=== PATIENT | female | born 1985 | race Caucasian/White ===

== ENCOUNTER 2016-04-11 21:18 | Emergency (ER) | payer OTHER ==
[2016-04-11 21:24] VITALS: BP 133/78; PULSE 90; TEMP 98; BMI 18.8
--- NOTE | 2016-04-11 21:24 | PDOC ---
History of Present Illness - General History Source: Patient Exam Limitations: No Limitations - History of Present Illness Initial Comments: 04/11/16 21:36 The patient is a 30 year old female, with no significant past medical history, who presents to the emergency department with a laceration to the right posterior ankle just prior to presentation to the ED. The patient states that she was moving furniture earlier this evening when a piece of furniture fell onto her right ankle. The patient was ambulatory after the incident and drove herself to the ED for evaluation. She denies any numbness/weakness of the right lower extremity. Last Tetanus is unknown. PAST MEDICAL HISTORY: See HPI. PAST SURGICAL HISTORY: No significant history. FAMILY HISTORY: No pertinent history. SOCIAL HISTORY: Patient lives with family and is employed. MEDICATIONS: Reviewed. ALLERGIES: As per nursing notes. Adult ROS: General: No fevers or chills, no weakness, no weight loss. HEENT: No change in vision. No sore throat. No ear pain. CardioVascular: No chest pain or shortness of breath. Respiratory: No cough, or wheezing. Gastrointestinal: No nausea, vomiting, diarrhea or constipation, no rectal bleeding. Genitourinary: No dysuria, hematuria, or frequency. Musculoskeletal: No joint or muscle pain or swelling. Neurologic: No headache, vertigo, dizziness or loss of consciousness. Psychiatric: No depression. Skin: +Laceration to the right posterior ankle. No rashes or easy bruising. Endocrine: No increased thirst or abnormal weight change. Allergic: No skin or latex allergy. All other systems reviewed and normal. Basic Exam: GENERAL: The patient is awake, alert, and fully oriented, in no acute distress. HEAD: Normal with no signs of trauma. EYES: Pupils equal, round and reactive to light, extraocular movements intact, sclera anicteric, conjunctiva clear. EXTREMITIES: Normal range of motion, no edema. NEUROLOGICAL: Normal speech, normal gait. PSYCH: Normal mood, normal affect. SKIN: 3.5 cm laceration to the right posterior ankle. Achilles tendon intact. Full ROM of the right ankle. Neurovascularly intact. Warm, dry, normal turgor, no rashes or lesions noted. <Trini Baker - Last Filed: 04/11/16 21:36> - General History Source: Patient Exam Limitations: No Limitations - History of Present Illness Initial Comments: 04/11/16 21:44 A portion of this note was documented by scribe services under my direction. I have reviewed the details of the note, within reason, and agree with the documentation. The case summary and management plan written by me. Assessment and plan: This is a 30-year-old female with laceration to her posterior heel area. Patient sustained a laceration while moving some furniture. Patient's tetanus needed to be updated she was given a tetanus here in the emergency room the laceration was cleaned and closed. Patient discharged will follow-up with her primary care doctor or return to the emergency room in 6-8 days for suture removal <Janine Cohn I - Last Filed: 04/11/16 21:47> - General Chief Complaint: Injury Stated Complaint: LACERATION RIGHT FOOT Time Seen by Provider: 04/11/16 21:24 Past History <Trini Baker - Last Filed: 04/11/16 21:36> - Past Medical History Other medical history: DENIES - Immunization History Td Vaccination: No Immunization Up to Date: No - Psycho/Social/Smoking Cessation Hx Anxiety: No Suicidal Ideation: No Smoking History: Never smoked Have you smoked in the past 12 months: No Information on smoking cessation initiated: No Hx Alcohol Use: Yes (SOCIAL) Drug/Substance Use Hx: No Substance Use Type: None <Janine Cohn I - Last Filed: 04/11/16 21:47> - Past Medical History Allergies/Adverse Reactions: Allergies Allergy/AdvReac Type Severity Reaction Status Date / Time No Known Allergies Allergy Verified 04/11/16 21:19 Home Medications: Ambulatory Orders NK [No Known Home Medication] 04/11/16 *Physical Exam - Vital Signs Last Vital Signs Temp Pulse Resp BP Pulse Ox 98 F 90 16 133/78 98 04/11/16 21:19 04/11/16 21:19 04/11/16 21:19 04/11/16 21:19 04/11/16 21:19 <Trini Baker - Last Filed: 04/11/16 21:36> - Vital Signs Last Vital Signs Temp Pulse Resp BP Pulse Ox 98 F 90 16 133/78 98 04/11/16 21:19 04/11/16 21:19 04/11/16 21:19 04/11/16 21:19 04/11/16 21:19 <Janine Cohn I - Last Filed: 04/11/16 21:47> Procedures - Laceration/Wound Repair Right Posterior Ankle Wound Length: 2.6 to 5.0 cm (3.5 cm) Wound Explored: clean, no foreign body present (no achilles tendon injury) Wound's Depth, Shape: superficial, linear Irrigated w/ Saline: Yes Betadine Prep: No Anesthesia: 1% Lidocaine Amount of Anesthetic (ccs): 3 Wound Debrided: minimal Wound Repaired With: Sutures Suture Size/Type: 5:0, other (ethylon) Number of Sutures: 5 (simple interrupted) Layer Closure: No (single layer) Sterile Dressing Applied: Yes <Trini Baker - Last Filed: 04/11/16 21:36> ED Treatment Course - Medications Given in the ED: ED Medications Discontinued Medications Generic Name Dose Route Start Last Admin Trade Name Freq PRN Reason Stop Dose Admin Diphtheria/Tetanus/Acell Pertussis 0.5 ml 04/11/16 21:26 04/11/16 21:27 Boostrix - IM 04/11/16 21:27 0.5 ml NOW ONE Administration <Trini Baker - Last Filed: 04/11/16 21:36> *DC/Admit/Observation/Transfer - Attestations Scribe Attestion: 04/11/16 21:29 Documentation prepared by Trini Baker, acting as medical/surgery registered nurse for Janine Cohn MD. <Trini Baker - Last Filed: 04/11/16 21:36> <Janine Cohn I - Last Filed: 04/11/16 21:47> Diagnosis at time of Disposition: Laceration of right ankle Qualifiers: Encounter type: initial encounter Qualified Code(s): S91.011A - Laceration without foreign body, right ankle, initial encounter - Discharge Dispostion Disposition: HOME Condition at time of disposition: Stable - Patient Instructions Printed Discharge Instructions: DI for Laceration Repair -- Simple Additional Instructions: Suture removal in 8 to 10 days. You can see her primary care doctor or return to the ER Keep the laceration dry for 48 hours. Apply bacitracin to the laceration once a day and change the Band-Aid. Return to the emergency department immediately with ANY new, persistent or worsening symptoms. Continue any medications as previously prescribed by your physician. You should follow up with your primary doctor as soon as possible regarding today's emergency department visit. . Please make sure your doctor reviews the results of your emergency evaluation. Thank you for coming to the Emergency Department today for your care. It was a pleasure to see you today. Please note that your evaluation is INCOMPLETE until you follow-up with your doctor.
[2016-04-11] MEDS ORDERED: DIPHTH,PERTUSS(ACELL),TET 0.5 ML DISP.SYRIN IM ONE (21:26)
== END 2016-04-11 21:51 | disposition home or self-care (01) ==
LOC: FER 21:18
PROC: 3E0234Z Introduction of Serum, Toxoid and Vaccine into Muscle, Percutaneous Approach (ICD-10-PCS; principal; 2016-04-11)
PROC: 0HQMXZZ Repair Right Foot Skin, External Approach (ICD-10-PCS; 2016-04-11)
DX: S91.011A Laceration without foreign body, right ankle, initial encounter (principal); W20.8XXA Other cause of strike by thrown, projected or falling object, initial encounter; Y93.89 Activity, other specified; Y92.9 Unspecified place or not applicable
CPT/HCPCS: 90715; 99281-25

== ENCOUNTER 2016-04-19 19:15 | Emergency (ER) | payer OTHER ==
[2016-04-19 19:23] VITALS: BP 107/61; PULSE 78; TEMP 98.1; BMI 18.8
--- NOTE | 2016-04-19 20:20 | PDOC ---
Suture Removal/Wound Check HPI - History of Present Illness History Source: Yes: Patient Exam Limitations: Yes: No Limitations Date of Last ED visit: 04/11/16 - Onset of Previous Treatment Comment:: 04/19/16 20:24 The patient is a 30 year old female, with no significant past medical history, who presents to the emergency department for suture removal from the back of her right posterior ankle. She noted a small amount of bleeding from the area but no other kind of discharge. She reports that she cut her right ankle moving furniture and came into the ED on 04/11/2016. She received 5 sutures. The patient denies fever and chills. Allergies: None Past surgical history: None reported Social history: No alcohol, tobacco or drug use reported <Noe Morales - Last Filed: 04/19/16 20:23> <Sarah Malhotra - Last Filed: 04/19/16 23:34> - History of Present Illness Chief Complaint: Suture/Staple Removal(Here) Stated Complaint: SUTURE REMOVAL RT ANKLE Time Seen by Provider: 04/19/16 19:19 Past History <Noe Morales - Last Filed: 04/19/16 20:23> - Immunization History Immunizations Up to Date: No - Social History Smoking Status: Never smoked <Sarah Malhotra - Last Filed: 04/19/16 23:34> - Past Medical History Allergies/Adverse Reactions: Allergies No Known Allergies Allergy (Verified 04/19/16 19:19) Home Medications: Ambulatory Orders NK [No Known Home Medication] 04/11/16 Suture Removal/Wound Check PE - Physical Exam Comments: 04/19/16 20:24 GENERAL: Awake, alert, and fully oriented, in no acute distress EXTREMITIES: Normal inspection, Normal range of motion, no edema. No clubbing or cyanosis. NEUROLOGICAL: Cranial nerves II through XII grossly intact. Normal speech, normal gait, no focal sensorimotor deficits SKIN: +Well healed 3.5 cm linear laceration in the posterior right foot. No tenderness, edema, erythema or discharge. Warm, Dry, normal turgor, no rashes or lesions noted. <Noe Morales - Last Filed: 04/19/16 20:23> *Review of Systems - Review of Systems Able to Perform ROS?: Yes Comments:: 04/19/16 20:24 GENERAL/CONSTITUTIONAL: No fever or chills. No weakness. SKIN: +Sutures on right posterior ankle. No rash <Noe Morales - Last Filed: 04/19/16 20:23> Medical Decision Making - Medical Decision Making Documentation has been prepared under my direction and personally reviewed by me in its entirety. I attest that this documented accurately reflects all work, treatment, procedures and medical decision making performed by me. As noted above, this 30-year-old woman presents for suture removal: She was seen here 8 days ago after right posterior ankle was lacerated as she was moving furniture. Patient reports no difficulty with healing over the last week. She states she has a small amount of bleeding for the first day that this resolved without difficulty and there has been no pain/swelling/redness around the wound. Exam as noted above. 5 interrupted sutures removed without difficulty Steri-Strips applied to the wound Patient tolerated procedure well <Sarah Malhotra - Last Filed: 04/19/16 23:34> *DC/Admit/Observation/Transfer - Attestations Scribe Attestion: 04/19/16 20:24 Documentation prepared by Noe Morales, acting as medical sales consultant for Sarah Malhotra MD <Noe Morales - Last Filed: 04/19/16 20:23> <Sarah Malhotra - Last Filed: 04/19/16 23:34> Diagnosis at time of Disposition: Encounter for removal of sutures - Discharge Dispostion Disposition: HOME Condition at time of disposition: Stable - Patient Instructions Printed Discharge Instructions: DI for Suture Removal Additional Instructions: can get wound wet return to ER or see your doctor if area becomes red/swollen/painful
== END 2016-04-19 20:23 | disposition home or self-care (01) ==
LOC: FER 19:15
DX: Z48.02 Encounter for removal of sutures (principal)
CPT/HCPCS: 99282-25